=== PATIENT | female | born 1975 | race Hispanic/Latino ===

== ENCOUNTER 2018-06-13 06:25 | Emergency (ER) | payer BC, MEDICAID ==
[2018-06-13] MEDS ORDERED: Dicyclomine 20 MG TAB ONE (07:16)
[2018-06-13] MEDS ORDERED: Ondansetron ODT 4 MG TAB ONE (07:16)
== END 2018-06-13 07:44 | disposition home or self-care (01) ==
LOC: SCSER 06:25
DX: R11.2 Nausea with vomiting, unspecified (principal); R19.7 Diarrhea, unspecified; D64.9 Anemia, unspecified
CPT/HCPCS: 99283; Q0162

== ENCOUNTER 2019-10-15 11:57 | Emergency (ER) | payer BC, OTHER ==
[2019-10-16 11:02] LABS: SARS-CoV-2 MS2 Positive; SARS-CoV-2 N Gene Negative; SARS-CoV-2 S Gene Negative; SARS-CoV-2 orf1ab Negative
== END 2019-10-15 12:40 | disposition home or self-care (01) ==
LOC: ERS 11:57
DX: R51 Headache (principal); Z20.828 Contact with and (suspected) exposure to other viral communicable diseases; D64.9 Anemia, unspecified; E10.9 Type 1 diabetes mellitus without complications; Z79.84 Long term (current) use of oral hypoglycemic drugs
CPT/HCPCS: 87635; 99283; U0003